=== PATIENT | female | born 1955 | race Caucasian/White ===

== ENCOUNTER 2023-03-01 14:30 | Observation (INO) | payer MEDICARE, OTHER, SELFPAY ==
--- NOTE | ~2023-03-01 | CT_ITS ---
EXAMINATION: CTA OF THE HEAD AND NECK CLINICAL INFORMATION: Transient global amnesia. Fall. COMPARISON: None available. TECHNIQUE: Test bolus sequences followed by intravenous administration 60 mL of Omnipaque 350. Helical imaging was performed in the axial plane from the mediastinum to the skull vertex. Delayed postcontrast imaging of the head was also performed. The data was processed at the nuclear medicine technologist's workstation for generation of MIP sequences. Three-dimensional volume rendered reformatted images were also generated at an offline 3-D workstation. Stenoses are assessed in accordance with NASCET criteria unless otherwise indicated. This CT examination was performed using dose optimization techniques as appropriate, variously including the following: *Automated exposure control *Adjustment of mA and/or kV according to patient size (this includes techniques or standardized protocols for targeted exams where dose is matched to indication/reason for exam; i.e. extremities or head) *Use of iterative reconstruction technique DLP: 2263 mGy-cm. FINDINGS: CT head: There is no evidence of acute intracranial hemorrhage or territorial infarction. There is no loss of quigley to white matter differentiation. No abnormal mass effect or midline shift is seen. No extra-axial fluid collections are identified. There is no abnormal enhancement. The ventricles are normal in size. There is no abnormal attenuation within the brain parenchyma. The osseous structures and soft tissues are normal. The mastoid air cells are well aerated. There is mild mucosal thickening in the dependent maxillary sinuses. CTA neck: The imaged aortic arch and origins of the great vessels are normal. The common carotid arteries are widely patent. The carotid bifurcations are normal. The cervical internal carotid arteries are normal. The vertebral arteries opacify normally and are of normal caliber. The soft tissues of the neck are unremarkable. Moderate spondylitic changes noted from the C4 through the C6 levels with disc-osteophyte complexes. The imaged portions of the lungs are clear. CTA head: The intradural vertebral arteries and basilar artery are normal. The posterior cerebral arteries are widely patent. The internal carotid arteries are of normal caliber. The ARPAN and MCA vascular complexes bilaterally are normal. The venous sinuses opacify normally. CT/CT angio head neck IMPRESSION: No acute intracranial process. Normal CT angiogram of the head and neck. Moderate mid to lower cervical spondylosis. Imaging findings reported to Dr. Kaiser at 5:45 PM on 03/01/2023.
--- NOTE | ~2023-03-01 | XR_ITS ---
EXAMINATION: XR HAND, RIGHT CLINICAL INFORMATION: Fall. Pain and swelling of the fourth finger COMPARISON: None available. TECHNIQUE: Three views of the right hand. FINDINGS: There is no fracture. No dislocation. No soft tissue abnormality. Minor joint narrowing and small marginal bone spurs of the DIP joints and of the middle finger PIP joint. XR/XR hand RT min 3V IMPRESSION: 1. No acute abnormality. 2. 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
--- NOTE | ~2023-03-01 | XR_ITS ---
EXAMINATION: XR HAND, LEFT CLINICAL INFORMATION: Fall. Swelling and pain of the middle finger. COMPARISON: None available. TECHNIQUE: Three views of the left hand. FINDINGS: No acute abnormality. No displaced fracture. Small corticated periarticular bone density at the radial side of the DIP joint of the middle finger. Degenerative joint narrowing with marginal bone spurs of the IP joint of the thumb and of the first metacarpal phalangeal joint. XR/XR hand LT min 3V IMPRESSION: 1. No acute abnormality. 2. Degenerative change of the IP joint of the thumb and first metacarpophalangeal joint.
[2023-03-01 14:37] VITALS: BP 146/80; PULSE 78; O2SAT 98
[2023-03-01 14:39] VITALS: BP 147/66; PULSE 60; RESP 19; TEMP 36.9; O2SAT 98; BMI 26.2
--- NOTE | 2023-03-01 14:47 | ECG_ITS ---
Test Reason : HEADACHE Blood Pressure : / mmHG Vent. Rate : 055 BPM Atrial Rate : 055 BPM P-R Int : 166 ms QRS Dur : 078 ms QT Int : 418 ms P-R-T Axes : 054 063 056 degrees QTc Int : 399 ms Sinus bradycardia Otherwise normal ECG No previous ECGs available Referred By: Jermaine Kaiser Electronically Signed By:HAN FRENCH MD
--- NOTE | 2023-03-01 14:50 | ED_ITS ---
HPI - Altered Mental Status General Chief Complaint: Altered Mental Status Stated Complaint: ?STROKE,FOUND OUTSIDE,?LOC,BRUISED FINGER Time Seen by Provider: 03/01/23 14:33 Source: patient, family and EMS History of Present Illness HPI narrative: 67 years old with no significant past medical history, brought to the emergency room by EMS after being found outside over house, confused. with bruising on both hands. Patient reports that she remembers waking up and having breakfast and then the next thing she remembers is being in the ambulance with EMS crew. Patient cannot recall if she fell. On arrival patient knows her name and date of , knows that we are in 2022 but does not know the exact date. She does not appear in distress, reports no chest pain, headache, abdominal pain nausea or vomiting. Reports pain in both middle fingers which also appears bruised. She is moving all 4 extremities. Last seen well [id number] Related Data Allergies Allergy/AdvReac Type Severity Reaction Status Date / Time No Known Allergies Allergy Verified 03/01/23 14:47 Review of Systems 2 Review of Systems: Yes all other systems are reviewed and are negative [facility] Social History Social History Advance Directives: No Advance Directives Information Provided: No Physical Exam ED Vital Signs: Vital Signs - 24 hr 03/01/23 14:39 03/01/23 15:44 Temperature 98.4 F 98.2 F Pulse Rate 60 58 Respiratory Rate 19 16 Blood Pressure 147/66 H 146/73 H Pulse Oximetry 98 98 Oxygen Delivery Method Room Air BMI result Body Mass Index 26.2 Const Other: General: Alert, Not in Distress Skin: bruising of the distal phalanx on both middle fingers. HEENT: Atraumatic, No Exudate or Pharyngeal Erythema Resp: Normal Breath sounds bilaterally Cardio: Regular rate and Rhythm, Normal S1, S2 ABD: Abd soft, non tender, no guarding or rebound. Normal Bowel sounds. : No cva tenderness Neuro: Alert, oriented x4, PERRL Strenght 5/5 on all extremities Sensation is preserved in both lower and upper extremities Index to nose: normal Cranial Nerves II-XII grossly intact No dysarthria, or aphasia No neglet. Visual green are normal bilaterally Psych: Cooperative, NO SI NIH Stroke Scale Internal: Initial- Upon Arrival Level of Consciousness: Alert Level of Consciousness Questions: Answers one question correctly Level of Consciousness Commands: Performs both tasks correctly Best Gaze: Normal Visual: No visual loss Facial Palsy: Normal Motor Arm (Right): No drift Motor Arm (Left): No drift Motor Leg (Right): No drift Motor Leg (Left): No drift Limb Ataxia: Absent Sensory: Normal Best Language: No aphasia Dysarthia: Normal Extinction and Inattention: No abnormality Score: 1 Course Reevaluation(s) Reevaluation #1: Patient continues to anterograd amnesia. I personally reviewed patient's blood work which is unremarkable I personally reviewed x-ray hands: No fracture Further history from family (GUS): PATIENT WAS LAST SEEN WELL THIS MORNING, SHE WAS THEN FOUND BY HER NEIGHBOR confused unable to provide history. Patient seems to continuously forget new events since this morning but has good memory of past events Time: 16:32 Medications Administered Discontinued Medications Generic Name Dose Route Start Last Admin Trade Name Freq PRN Reason Stop Dose Admin Acetaminophen 975 mg 03/01/23 14:47 03/01/23 15:26 Acetaminophen 325 Mg Tablet PO 03/01/23 14:48 975 mg ONCE ONE Administration Sodium Chloride 500 mls @ 999 mls/hr 03/01/23 15:00 03/01/23 15:26 Ns IV 03/01/23 15:30 999 mls/hr .Q31M YOHANA Administration Medical Decision Making Medical Decision Making [facility] Narrative: 67 years old, no significant past medical history, presents to the emergency room for acute confusion. Last seen well 0800AM Patient was found outside the house by a neighbor, unable to give a reliable history on how she ended up there. On initial exam patient does not have any focal neurological deficit, still slightly confused, she is oriented to person, place but does not know the exact date but knows we are in 2022. Impression: Transient global amnesia, TIA, metabolic encephalopathy, drug reaction Plan: CTA head and neck. Patient does not have focal neuro deficit. Will not activate stroke EKG CBC, CMP, VBG X-ray and Analgesia Admission/Observation Consideration of admission/observation: Escalation of care including admission/observation considered Lab Data [facility] Lab Attestation statement: I reviewed the patient's lab results. 03/01/23 16:00 03/01/23 16:00 Labs: Lab Results 03/01/23 03/01/23 Range/Units 16:00 16:04 WBC 7.1 (4.8-10.8) X10*3/uL RBC 4.82 (4.20-5.50) X10*6/uL Hgb 14.9 (12.0-16.0) g/dl Hct 43.9 (37.0-47.0) % MCV 91.1 (80.0-98.0) fL MCH 30.9 (27.0-33.0) pg MCHC 33.9 (31.0-35.0) g/dl RDW 12.4 (11.0-16.0) % Plt Count 222 (160-400) X10*3/uL MPV 9.3 L (9.4-12.3) fL Immature Gran % (Auto) 0.3 (0.0-0.4) % Neut % (Auto) 74.1 H (45-73) % Lymph % (Auto) 20.9 (20-40) % [place] % (Auto) 3.8 (2-11) % Eos % (Auto) 0.6 (0-4) % Baso % (Auto) 0.3 (0-2) % Lymph # (Auto) 1.5 (1.2-4.9) X10*3/uL [place] # (Auto) 0.3 (0.1-1.2) X10*3/uL Eos # (Auto) 0.0 (0.0-0.4) X10*3/uL Baso # (Auto) 0.0 (0.0-0.2) X10*3/uL Abs Immat Gran (auto) 0.02 (0.00-0.03) X10*3/uL Absolute Neuts (auto) 5.2 (2.0-8.3) x10*3/uL Absolute Nucleated RBC 0.000 (0.0-0.012) X10*3/uL Nucleated RBC % (auto) 0.0 (0.0-0.2) /100WBC VBG pH 7.40 (7.32-7.43) VBG pCO2 47 mmHg VBG pO2 39 mmHg VBG HCO3 29 H (22-26) mmol/L VBG O2 Saturation 60.0 % VBG Base Excess 4.1 mmol/L Sodium 139 (135-145) mmol/L Potassium 3.9 (3.3-5.1) mmol/L Chloride 103 (96-108) mmol/L Carbon Dioxide 24 (22-29) mmol/L Anion Gap 16 (12-20) BUN 7 L (9-16) mg/dL Creatinine 0.80 (0.5-1.4) mg/dL Estim Creat Clear Calc 62.7 Estimated GFR > 60 Random Glucose 115 (60-115) mg/dL Calcium 10.4 H (8.4-10.2) mg/dL Total Bilirubin 1.2 H (0.0-1.0) mg/dL Direct Bilirubin 0.3 (0.0-0.5) mg/dL AST 30 (5-31) U/L ALT 26 (0-31) U/L Alkaline Phosphatase 72 (39-117) U/L Total Protein 7.7 (6.5-8.0) g/dL Albumin 4.8 (3.5-5.0) g/dL Independent Interpretation I performed an independent interpretation of an: EKG (Normal SR) and Plain X-Ray (No fracture) Discharge Plan Discharge Clinical Impression: Altered mental status, Amnesia, global, transient
[2023-03-01] MEDS: Acetaminophen 325 MG TABLET 975 MG PO (15:26)
[2023-03-01] MEDS: 0.9 % Sodium Chloride 500 ML 999 ML IV (15:26)
[2023-03-01 15:44] VITALS: BP 146/73; PULSE 58; RESP 16; TEMP 36.8; O2SAT 98
[2023-03-01 16:06] LABS: MANUAL DIFF FLAG NO
--- NOTE | 2023-03-01 16:06 | MHC.EDTECH ---
THis Pct assumed care of pt at 1500 ,ekg taken and blood drawn and rsv /covid swab collected and sent to lab .
[2023-03-01 16:08] LABS: Basophils Percent Auto 0.3 % (0-2); Eosinophils Percent Auto 0.6 % (0-4); Hematocrit 43.9 % (37.0-47.0); Hemoglobin 14.9 g/dl (12.0-16.0); Imm Gran Abs Auto 0.02 X10*3/uL (0.00-0.03); Imm Gran Pct Auto 0.3 % (0.0-0.4); Lymphocytes Absolute Auto 1.5 X10*3/uL (1.2-4.9); Lymphocytes Percent Auto 20.9 % (20-40); Mean Corpuscular HGB Conc 33.9 g/dl (31.0-35.0); Mean Corpuscular Hemoglobin 30.9 pg (27.0-33.0); Mean Corpuscular Volume 91.1 fL (80.0-98.0); Mean Platelet Volume 9.3 fL (9.4-12.3); Monocytes Absolute Auto 0.3 X10*3/uL (0.1-1.2); Monocytes Percent Auto 3.8 % (2-11); Neutrophils Absolute Auto 5.2 x10*3/uL (2.0-8.3); Neutrophils Percent Auto 74.1 % (45-73); Platelet Count 222 X10*3/uL (160-400); Red Blood Count 4.82 X10*6/uL (4.20-5.50); Red Cell Distribution Width 12.4 % (11.0-16.0); White Blood Count 7.1 X10*3/uL (4.8-10.8)
[2023-03-01 16:09] LABS: VBG Base Excess 4.1 mmol/L; VBG HCO3 29 mmol/L (22-26); VBG pCO2 47 mmHg; VBG pO2 39 mmHg
[2023-03-01 16:10] LABS: Venous Blood Gas Refer to POC result
[2023-03-01 16:27] LABS: Alanine Aminotransferase 26 U/L (0-31); Albumin Level 4.8 g/dL (3.5-5.0); Alkaline Phosphatase 72 U/L (39-117); Anion Gap 16 (12-20); Aspartate Amino Transferase 30 U/L (5-31); Bilirubin Direct 0.3 mg/dL (0.0-0.5); Bilirubin Total 1.2 mg/dL (0.0-1.0); Blood Urea Nitrogen 7 mg/dL (9-16); Calcium 10.4 mg/dL (8.4-10.2); Carbon Dioxide 24 mmol/L (22-29); Chloride 103 mmol/L (96-108); Creatinine Clr Calc Pharmacy 62.7; Estimated Glomerular Filt Rate > 60; Glucose Random 115 mg/dL (60-115); Potassium 3.9 mmol/L (3.3-5.1); Sodium 139 mmol/L (135-145); Total Protein 7.7 g/dL (6.5-8.0)
[2023-03-01 16:52] LABS: Influenza A PCR NEGATIVE (Negative); Influenza B PCR NEGATIVE (Negative); Resp Syncy Virus RNA Qual PCR NEGATIVE (Negative); SARS COV2 PCR INHOUSE NEGATIVE (Negative)
[2023-03-01] MEDS: iohexoL 350 MG/ML 100 ML INFUS..BTL 60 ML IV (17:14)
[2023-03-01 17:16] LABS: Glucose, Whole Blood 106 mg/dL (60-115)
--- NOTE | 2023-03-01 18:08 | PHA.MEDREC ---
Pharmacy Consult ? Medication Reconciliation Pharmacy has completed the medication reconciliation. Patient reported medications, report has not start estradiol cream yet. Melissa Swenson, SamuelD
[2023-03-01 18:39] VITALS: BP 149/73; PULSE 56; RESP 16; TEMP 36.9; O2SAT 98
[2023-03-01 18:47] LABS: Appearance Urine Clear; Color Urine Yellow; Glucose Urine UA Negative (Negative); Leukocyte Esterase Urine Trace (Negative); Nitrite Urine Negative (Negative); PH 6.5 (5.0-9.0); Specific Gravity - Urine 1.015 (1.005-1.025); UMIC TRIGGER UACC YES; Urine Blood Negative (Negative); Urine Ketones Negative (Negative); Urine Protein Negative (Neg-Trace)
[2023-03-01 18:53] LABS: Bacteria Urine None Seen (None Seen); Hyaline Casts Urine 0-2 /LPF (0-2); RBC Urine 0-2 /HPF (0-2); Squamous Epithelial Cell Urine 0-2 /HPF (0-2); WBC Urine 0-5 /HPF (0-5)
[2023-03-01 19:05] LABS: Amphetamine Screen Urine Not Detected (Not Detect); Barbiturates, Urine Not Detected (Not Detect); Benzodiazepines Screen Urine Not Detected (Not Detect); Cannabinoid Screen Urine Not Detected (Not Detect); Cocaine Screen Urine Not Detected (Not Detect); Fentanyl, urine Not Detected (Not Detect); Opiate Screen Urine Not Detected (Not Detect); Phencyclidine Screen Urine Not Detected (Not Detect)
--- NOTE | 2023-03-01 19:48 | PM.IMHP ---
History of Present Illness Date of Service: 03/01/23 Attending physician on admission: [facility] Chief Complaint: amnesia 67-year-old female without any significant past medical history presented to the ED via EMS for evaluation of confusion/altered mental status. She is currently accompanied by her partner who assists with history. Per the patient, she said out on her usual routine this [place] walking a 1.5 mi hike with her dog. She does not recall any falls or trauma but does not recall finishing the hike and arriving home. She shows me a text message she sent to her friend which states that she felt she crushed her fingers and was unsure why. The text message was coherent. Apparently, her friend arrived to her house for unexpected visit around 10 30 this morning and found her in the front yd bleeding from her hands and confused. She was ultimately brought to the hospital for further evaluation after a friend called EMS. The patient is currently oriented x3 but per her partner continues asking the same questions and recalls little of earlier today. She states she did have a similar though not as severe episode about 10-15 years ago but is unclear to the etiology of the symptoms at that time. Her partner does note that there is increased stress as they are though amicable. She denies any illicit substance use. She reports drinking about 1-2 alcoholic beverages on the weekend but did not consume any alcohol last night or today. She denies any new medications except for melatonin which she has been taking nightly for sleep. He denies any visual changes, lightheadedness, focal weakness or paresthesias. No gait instability. There is bruising noted to the fingers but no other evidence of trauma. On arrival, vital stable the patient slightly hypertensive to 149/73. No leukocytosis. Renal function and electrolyte levels normal. VBG without any significant hypercapnia. Urinalysis unremarkable. Urine tox screen negative. Negative for influenza, RSV, COVID-19. CTA of the head and neck negative for any acute intracranial process with normal CT angiogram. There is moderate mid to lower cervical spondylosis but no other abnormality. X-ray of the hands bilaterally negative for any acute osseous abnormality. In the ED, given Tylenol, 500 mL IVF. Review of Systems Review of Systems: General: No fevers, malaise, unintentional weight loss HEENT: No blurred vision, diplopia. No sore throat, nasal congestion, rhinorrhea, sinus pain, ear pain Cardiovascular: No chest pain, palpitations, or leg edema Respiratory: No shortness of breath, wheezing, cough GI: No abdominal pain, nausea, vomiting, diarrhea, constipation, melena, hematochezia : No dysuria, hematuria, increased urinary frequency, decreased urinary output MSK: No myalgia, back pain. +trauma bilateral fingers Neuro: No headaches, weakness, paresthesias. +amnesia Skin: No rashes or lesions [facility] Medical History No pertinent past medical history Social History (Updated 03/01/23 @ 19:55 by DEYA Urbina) Alcohol intake: current Alcohol intake frequency: a few times a month Patient Tobacco Use Status: Never used Tobacco Meds Allergies Allergy/AdvReac Type Severity Reaction Status Date / Time No Known Allergies Allergy Verified 03/01/23 14:47 Active Medications: Current Medications Acetaminophen (Acetaminophen 325 Mg Tablet) 650 mg PO Q6H PRN PRN Reason: Pain, Mild (Pain Scale 1-3) Enoxaparin Sodium (Enoxaparin Sodium 40 Mg/0.4 Ml Syringe) 40 mg SUBCUT Q24H YOHANA Ondansetron HCl (Ondansetron Hcl 4 Mg/2 Ml Vial) 4 mg IVPUSH Q8H PRN PRN Reason: Nausea and Vomiting Sodium Chloride (0.9 % Sodium Chloride Flush 3 Ml Syringe) 3 ml IVFLUSH QSHIFT [facility] Home Medications Medication Instructions Recorded Confirmed Last Taken Type [place] Herbs 1 tab PO DAILY 03/01/23 03/01/23 Unknown History albuterol sulfate 90 mcg/actuation 2 puff inhalation Q6H PRN dyspnea 03/01/23 03/01/23 Unknown History aerosol inhaler estradiol 10 mcg vaginal tablet 10 mcg vaginal 2XW 03/01/23 03/01/23 Unknown History (Yuvafem) levocetirizine 5 mg tablet (Xyzal) 5 mg PO DAILY PRN Allergy Symptoms 03/01/23 03/01/23 Unknown History Physical Exam Vital Signs and Narrative: Vital Signs: Last Vital Signs Temp 98.4 F 03/01/23 18:39 Pulse 56 03/01/23 18:39 Resp 16 03/01/23 18:39 BP 149/73 H 03/01/23 18:39 Pulse Ox 98 03/01/23 18:39 O2 Del Method Room Air 03/01/23 18:39 BMI result Body Mass Index 26.2 Constitutional - Awake and Alert, No apparent distress Eyes - PERRLA, EOMI Cardiovascular - S1S2, RRR, No edema Respiratory - Normal lung expansion, Normal respiratory effort, No respiratory distress, CTA bilaterally Gastrointestinal - NT / ND; +BS; No rebound or guarding Extremities - no calf tenderness bilaterally, no swelling MSK- ecchymosis of the distal phalanx of the 3rd fingers bilaterally with subungual hematoma on the bilateral 2nd and 3rd fingers Skin - Warm/Dry Neurological - Alert & oriented x3, cannot recall events earlier in the day, CN II-XII in tact, 5/5 strength BUE and BLE Psychological - Appropriate affect Results Labs 03/01/23 16:00 03/01/23 16:00 Labs: Laboratory Results - last 24 hr 03/01/23 03/01/23 03/01/23 16:00 16:04 16:37 MCV 91.1 MCH 30.9 MCHC 33.9 RDW 12.4 Plt Count 222 MPV 9.3 L Immature Gran % (Auto) 0.3 Neut % (Auto) 74.1 H Lymph % (Auto) 20.9 [place] % (Auto) 3.8 Eos % (Auto) 0.6 Baso % (Auto) 0.3 Lymph # (Auto) 1.5 [place] # (Auto) 0.3 Eos # (Auto) 0.0 Baso # (Auto) 0.0 Abs Immat Gran (auto) 0.02 Absolute Neuts (auto) 5.2 Absolute Nucleated RBC 0.000 Nucleated RBC % (auto) 0.0 VBG pH 7.40 VBG pCO2 47 VBG pO2 39 VBG HCO3 29 H VBG O2 Saturation 60.0 VBG Base Excess 4.1 Anion Gap 16 Estim Creat Clear Calc 62.7 Estimated GFR > 60 POC Glucose 106 Random Glucose 115 Calcium 10.4 H Total Bilirubin 1.2 H Direct Bilirubin 0.3 AST 30 ALT 26 Alkaline Phosphatase 72 Total Protein 7.7 Albumin 4.8 Urine Color Urine Appearance Urine pH Ur Specific [place] Urine Protein Urine Glucose (UA) Urine Ketones Urine Blood Urine Nitrite Ur Leukocyte Esterase Urine RBC Urine WBC Ur Squamous Epith Cells Urine Bacteria Hyaline Casts Urine Opiates Screen Urine Fentanyl Screen Ur Barbiturates Screen Ur Phencyclidine Scrn Ur Amphetamines Screen U Benzodiazepines Scrn Urine Cocaine Screen U Marijuana (THC) Screen Influenza Type A (PCR) NEGATIVE Influenza Type B (PCR) NEGATIVE RSV RNA Qual (PCR) NEGATIVE SARS-CoV-2 RNA (RT-PCR) NEGATIVE 03/01/23 17:57 MCV MCH MCHC RDW Plt Count MPV Immature Gran % (Auto) Neut % (Auto) Lymph % (Auto) [place] % (Auto) Eos % (Auto) Baso % (Auto) Lymph # (Auto) [place] # (Auto) Eos # (Auto) Baso # (Auto) Abs Immat Gran (auto) Absolute Neuts (auto) Absolute Nucleated RBC Nucleated RBC % (auto) VBG pH VBG pCO2 VBG pO2 VBG HCO3 VBG O2 Saturation VBG Base Excess Anion Gap Estim Creat Clear Calc Estimated GFR POC Glucose Random Glucose Calcium Total Bilirubin Direct Bilirubin AST ALT Alkaline Phosphatase Total Protein Albumin Urine Color Yellow Urine Appearance Clear Urine pH 6.5 Ur Specific [place] 1.015 Urine Protein Negative Urine Glucose (UA) Negative Urine Ketones Negative Urine Blood Negative Urine Nitrite Negative Ur Leukocyte Esterase Trace H Urine RBC 0-2 Urine WBC 0-5 Ur Squamous Epith Cells 0-2 Urine Bacteria None Seen Hyaline Casts 0-2 Urine Opiates Screen Not Detected Urine Fentanyl Screen Not Detected Ur Barbiturates Screen Not Detected Ur Phencyclidine Scrn Not Detected Ur Amphetamines Screen Not Detected U Benzodiazepines Scrn Not Detected Urine Cocaine Screen Not Detected U Marijuana (THC) Screen Not Detected Influenza Type A (PCR) Influenza Type B (PCR) RSV RNA Qual (PCR) SARS-CoV-2 RNA (RT-PCR) Imaging Radiologist's Impressions: Impressions Hand X-Ray 03/01/23 15:04 IMPRESSION: 1. No acute abnormality. 2. Degenerative change of the IP joint of the thumb and first metacarpophalangeal joint. Hand X-Ray 03/01/23 15:07 IMPRESSION: 1. No acute abnormality. 2. 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 Head/Neck CTA 03/01/23 17:15 IMPRESSION: No acute intracranial process. Normal CT angiogram of the head and neck. Moderate mid to lower cervical spondylosis. Imaging findings reported to Dr. Kaiser at 5:45 PM on 03/01/2023. Assessment and Plan (1) Amnesia, global, transient: Status: Acute Plan 67-year-old female without any significant past medical history to be observed following an episode of transient global amnesia. #Transient global amnesia -etiology unclear at this time- consider stress induced, psychological, less likely TIA -No evidence of head trauma, cta head/neck without any acute abnormality -neurology consult -further workup with MRI verses EEG per Neurology -monitor on telemetry # hand trauma -x-rays negative for osseous abnormality -Tylenol p.r.n. DVT prophylaxis-Lovenox full code Time Spent With Patient Time: Total time managing care of this patient today ____ minutes. Quality Stroke Does the patient have a stroke diagnosis?: No VTE Prior VTE?: No VTE Risk Level:: Medical - moderate - high VTE Device Contraindication: Treatment Not Indicated VTE Drug Contraindication: N/A - Med Ordered
[2023-03-01] MEDS: Enoxaparin Sodium 40 MG/0.4 ML SYRINGE SUBCUT (19:59)
--- NOTE | 2023-03-01 20:03 | PC.NURSE ---
I assumed care of the pt at 1900. Pt resting quietly in bed at this time, no apparent distress. Pt is A&O to person and place, GCS 15, with warm, dry skin. Pt was medicated per JUN. Pt denies pain, NVD, or SOB at this time.
[2023-03-01 20:13] VITALS: BP 131/50; PULSE 52; RESP 20; TEMP 36.8; O2SAT 96
[2023-03-01 21:12] LABS: TSH reflex Free T4 1.88 uIU/mL (0.32-4.0)
[2023-03-01 23:38] VITALS: BP 136/60; PULSE 50; RESP 20; TEMP 36.9; O2SAT 98
--- NOTE | 2023-03-01 23:39 | MHC.EDTECH ---
0000 Rounding done ,vitals taken ,Pt ambulate to bathroom back to bed ,was hooked back up to monitoring coordinator ,Pt said she will try to get some sleep .
[2023-03-02] MEDS: 0.9 % Sodium Chloride Flush 3 ML SYRINGE IVFLUSH ×2 (00:38→09:04)
[2023-03-02] MEDS: Acetaminophen 325 MG TABLET 650 MG PO (02:36)
[2023-03-02 04:56] VITALS: BP 122/52; PULSE 50; RESP 16; TEMP 36.6; O2SAT 97
[2023-03-02 05:09] VITALS: BMI 24.6
[2023-03-02 06:52] LABS: MANUAL DIFF FLAG NO
[2023-03-02 07:03] LABS: Basophils Percent Auto 0.6 % (0-2); Eosinophils Absolute Auto 0.2 X10*3/uL (0.0-0.4); Eosinophils Percent Auto 3.6 % (0-4); Hemoglobin 13.5 g/dl (12.0-16.0); Imm Gran Abs Auto 0.01 X10*3/uL (0.00-0.03); Imm Gran Pct Auto 0.2 % (0.0-0.4); Lymphocytes Absolute Auto 2.2 X10*3/uL (1.2-4.9); Lymphocytes Percent Auto 44.2 % (20-40); Mean Corpuscular HGB Conc 32.9 g/dl (31.0-35.0); Mean Corpuscular Hemoglobin 30.4 pg (27.0-33.0); Mean Corpuscular Volume 92.3 fL (80.0-98.0); Mean Platelet Volume 9.9 fL (9.4-12.3); Monocytes Absolute Auto 0.4 X10*3/uL (0.1-1.2); Monocytes Percent Auto 8.5 % (2-11); Neutrophils Absolute Auto 2.1 x10*3/uL (2.0-8.3); Neutrophils Percent Auto 42.9 % (45-73); Platelet Count 204 X10*3/uL (160-400); Red Blood Count 4.44 X10*6/uL (4.20-5.50); Red Cell Distribution Width 12.8 % (11.0-16.0)
[2023-03-02 07:18] LABS: Anion Gap 12 (12-20); Blood Urea Nitrogen 6 mg/dL (9-16); Calcium 9.4 mg/dL (8.4-10.2); Carbon Dioxide 25 mmol/L (22-29); Chloride 109 mmol/L (96-108); Creatinine Clr Calc Pharmacy 68.7; Estimated Glomerular Filt Rate > 60; Glucose Random 91 mg/dL (60-115); Potassium 4.2 mmol/L (3.3-5.1); Sodium 142 mmol/L (135-145)
[2023-03-02 07:46] VITALS: BP 126/58; PULSE 51; RESP 18; TEMP 36.3; O2SAT 96
--- NOTE | 2023-03-02 10:31 | MHC.CM.PN ---
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 DENIES USE OF DME/SERVICES AND GOAL FOR DC IS HOME NO SERVICES W/FRIEND FOR TRANSPORT. PT VERIFIES PCP ON FILE IS CORRECT, FULLY VACCINATED FOR COVID19 INCLUDING MOST RECENT BOOSTER LAST WEEK, PT EDUCATED ON AND DECLINES TO COMPLETE A NEW HCP, PT REPORTS HER GUS IS CURRENTLY HER [facility] AND IS CONSIDERING CHANGING IT HOWEVER UNSURE WHO WILL CHOOSE AT THIS TIME, PT PROVIDED W/EDUCATIONAL HANDOUT AND BLANK HCP TO COMPLETE AT HOME. ANTIC DC LATER TODAY AFTER NEURO CONSULT W/FRIEND FOR TRANSPORT
[2023-03-02 11:29] VITALS: BP 136/65; PULSE 54; RESP 16; TEMP 36.2; O2SAT 97
--- NOTE | 2023-03-02 12:10 | P.CNNE_ITS ---
History of Present Illness Data of Consult Service Date: 03/02/23 Primary Care Provider: Imelda Alston MD HPI Reason for consult: Amnesia 67 years old woman apparently with no significant past medical history except that she had a similar episode number of years ago with no obvious explanation. Upon questioning, she stated that she suffered from migraine headaches, which got better after menopause. Now headaches were rare. She was brought to hospital after she was noted to be confused or not remembering what had happened. She was unable to remember or elaborate on that and that history was documented on her initial HPI. When I asked her why she was here, she said that she had an accident when she was lifting something at home and her both middle fingers got injured. She showed me bluish discoloration of her nails in both middle fingers. She said the last night she did not sleep well and because of that she was having a headache but otherwise she was fine. She denied any previous history of seizure or passing out. There was no recent head injury. She denied suffering from significant anxiety or depression but presently she was going through stressful times stating that she was from her partner and that was stressful for her. When I asked common stressful she was? She said about 7. Review of Systems 2 Review of Systems: No recent cold or flu-like illness PMFSH Past Medical History Medical History No pertinent past medical history Social History Social History (Updated 03/01/23 @ 19:55 by DEYA Urbina) Alcohol intake: current Alcohol intake frequency: a few times a month Alcohol type: wine Patient Tobacco Use Status: Never used Tobacco service: No Meds Allergies Allergy/AdvReac Type Severity Reaction Status Date / Time No Known Allergies Allergy Verified 03/01/23 14:47 Active Medications: Current Medications Acetaminophen (Acetaminophen 325 Mg Tablet) 650 mg PO Q6H PRN PRN Reason: Pain, Mild (Pain Scale 1-3) Last Admin: 03/02/23 02:36 Dose: 650 mg Albuterol Sulfate (Albuterol Sulfate 90 Mcg 8 Gm Inhaler) 2 puff INHALE Q6H PRN PRN Reason: dyspnea Docusate Sodium (Docusate Sodium 100 Mg Capsule) 100 mg PO DAILY PRN PRN Reason: Constipation Enoxaparin Sodium (Enoxaparin Sodium 40 Mg/0.4 Ml Syringe) 40 mg SUBCUT Q24H [facility] Last Admin: 03/01/23 19:59 Dose: 40 mg Loratadine (Loratadine 10 Mg Tablet) 10 mg PO DAILY PRN PRN Reason: Allergy Symptoms Non-Formulary Medication (Estradiol [Yuvafem]) 10 mcg VAGINAL 2XW [facility] Ondansetron HCl (Ondansetron Hcl 4 Mg/2 Ml Vial) 4 mg IVPUSH Q8H PRN PRN Reason: Nausea and Vomiting Sodium Chloride (0.9 % Sodium Chloride Flush 3 Ml Syringe) 3 ml IVFLUSH QSHIFT YOHANA Last Admin: 03/02/23 09:04 Dose: 3 ml Sodium Chloride (Sodium Chloride 0.65 % Nasal 44 Ml Sprbtl) 1 spray NOSTRIL-B Q1H PRN PRN Reason: congestion Home Medications Medication Instructions Recorded Confirmed Last Taken Type Swiss Herbs 1 tab PO DAILY 03/01/23 03/01/23 Unknown History albuterol sulfate 90 mcg/actuation 2 puff inhalation Q6H PRN dyspnea 03/01/23 03/01/23 Unknown History aerosol inhaler estradiol 10 mcg vaginal tablet 10 mcg vaginal 2XW 03/01/23 03/01/23 Unknown History (Yuvafem) levocetirizine 5 mg tablet (Xyzal) 5 mg PO DAILY PRN Allergy Symptoms 03/01/23 03/01/23 Unknown History Physical Exam 2 Vital Signs: Vital Signs: Last Vital Signs Temp 97.2 F 03/02/23 11:29 Pulse 54 03/02/23 11:29 Resp 16 03/02/23 11:29 BP 136/65 03/02/23 11:29 Pulse Ox 97 03/02/23 11:29 O2 Del Method Room Air 03/02/23 11:29 BMI result Body Mass Index 24.6 Neuro: Other: Alert and awake anxious looking woman with normal spontaneity of speech fluency and comprehension. Face is symmetrical. Visual green are full. There is no obvious focal weakness. Deep tendon reflexes are 1 to 2+ with flexor plantars. Results Labs 03/02/23 06:12 03/02/23 06:12 Labs: Short CBC 03/01/23 03/02/23 Range/Units 16:00 06:12 WBC 7.1 5.0 (4.8-10.8) X10*3/uL Hgb 14.9 13.5 (12.0-16.0) g/dl Hct 43.9 41.0 (37.0-47.0) % Plt Count 222 204 (160-400) X10*3/uL BMP 03/01/23 03/02/23 16:00 06:12 Sodium 139 142 Potassium 3.9 4.2 Chloride 103 109 H Carbon Dioxide 24 25 BUN 7 L 6 L Creatinine 0.80 0.71 Calcium 10.4 H 9.4 D Liver Function 03/01/23 Range/Units 16:00 Total Bilirubin 1.2 H (0.0-1.0) mg/dL Direct Bilirubin 0.3 (0.0-0.5) mg/dL AST 30 (5-31) U/L ALT 26 (0-31) U/L Alkaline Phosphatase 72 (39-117) U/L Albumin 4.8 (3.5-5.0) g/dL Urine 03/01/23 Range/Units 17:57 Urine Color Yellow Urine Appearance Clear Urine pH 6.5 (5.0-9.0) Ur Specific [place] 1.015 (1.005-1.025) Urine Protein Negative (Neg-Trace) mg/dL Urine Glucose (UA) Negative (Negative) mg/dL Her CT scan of brain revealed moderately severe bilateral cortical mostly parietal but also some posterior frontal atrophy. Vascular study did not reveal any lesion. Assessment and Plan (1) Amnesia, global, transient: Status: Acute 67 years old woman going through stressful situation related to separation from her partner, had some type of physical injury to her hands as she showed me bruises on her nails, was brought to hospital and a confused state or not remembering what had happened. She still did not have clear recollection of those events. Her examination, other than anxious affect, did not reveal any focal finding. Head CT revealed quite significant cortical atrophy involving parietal and posterior part of frontal lobes, which would suggest an underlying genetic tendency or a genetic disorder resulting in cerebral degeneration, which could cause neuropsychiatric symptoms. For now, my suggestion is to schedule an outpatient EEG to rule out seizure disorder. Counseling and therapy is also recommended to manage stress. Procedures Date of Service Date of Service: 03/02/23
--- NOTE | 2023-03-02 12:46 | PM.DS ---
DS: Providers Provider Date of Service: 03/02/23 Date of admission: 03/01/23 19:45 Primary care physician: Imelda Alston MD Consults: 03/01/23 19:45 Consult to Neurology Routine Consulting Provider: [facility] Reason for consultation: transient global amnesia DS: Diagnosis Discharge Diagnosis (1) Amnesia, global, transient: Status: Acute DS: Summary Hospital Course Hospital Course: History of presenting illness: Attending physician on admission: [facility] Chief Complaint: amnesia 67-year-old female without any significant past medical history presented to the ED via EMS for evaluation of confusion/altered mental status. She is currently accompanied by her partner who assists with history. Per the patient, she said out on her usual routine this [place] walking a 1.5 mi hike with her dog. She does not recall any falls or trauma but does not recall finishing the hike and arriving home. She shows me a text message she sent to her friend which states that she felt she crushed her fingers and was unsure why. The text message was coherent. Apparently, her friend arrived to her house for unexpected visit around 10 30 this morning and found her in the front yd bleeding from her hands and confused. She was ultimately brought to the hospital for further evaluation after a friend called EMS. The patient is currently oriented x3 but per her partner continues asking the same questions and recalls little of earlier today. She states she did have a similar though not as severe episode about 10-15 years ago but is unclear to the etiology of the symptoms at that time. Her partner does note that there is increased stress as they are though amicable. She denies any illicit substance use. She reports drinking about 1-2 alcoholic beverages on the weekend but did not consume any alcohol last night or today. She denies any new medications except for melatonin which she has been taking nightly for sleep. He denies any visual changes, lightheadedness, focal weakness or paresthesias. No gait instability. There is bruising noted to the fingers but no other evidence of trauma. On arrival, vital stable the patient slightly hypertensive to 149/73. No leukocytosis. Renal function and electrolyte levels normal. VBG without any significant hypercapnia. Urinalysis unremarkable. Urine tox screen negative. Negative for influenza, RSV, COVID-19. CTA of the head and neck negative for any acute intracranial process with normal CT angiogram. There is moderate mid to lower cervical spondylosis but no other abnormality. X-ray of the hands bilaterally negative for any acute osseous abnormality. In the ED, given Tylenol, 500 mL IVF. Hospital course: Acute transient global amnesia: 67-year-old female without any significant past medical history admitted for transient global amnesia, during hospitalization patient had no new neurological symptoms, she remained awake alert with no motor deficit, seen by Neurology they reviewed CT angiogram head and neck, and felt patient has significant cortical atrophy involving parietal and posterior part of frontal lobes, which would suggest an underlying genetic tendency or a genetic disorder resulting in cerebral degeneration, which could cause neuropsychiatric symptoms, he recommended outpatient EEG to rule out seizure, her episode was likely due to stress and strenuous activity, recommend to do counseling and minimize strenuous activity. # hand trauma -x-rays negative for osseous abnormality, recommend Tylenol p.r.n. Time Attestation Discharge coordination time: Greater than 30 minutes Quality: Safe Use of Opioids Does Pt have an Active Cancer Diagnosis on the Problem List?: No Quality: Stroke Does the patient have a stroke diagnosis?: No Physical Exam Vital Signs: Vital Signs: Last Vital Signs Temp 97.2 F 03/02/23 11:29 Pulse 54 03/02/23 11:29 Resp 16 03/02/23 11:29 BP 136/65 03/02/23 11:29 Pulse Ox 97 03/02/23 11:29 O2 Del Method Room Air 03/02/23 11:29 BMI result Body Mass Index 24.6 Const: Other: General awake alert x3, in no acute distress. Neck supple no JVD. CVS regular rate rhythm, Respiratory lungs clear to auscultation, no respiratory distress, no wheeze, no rhonchi. Gastrointestinal abdomen soft, non tender, bowel sounds audible, no guarding , no rigidity. Extremities no edema. Neuro nonfocal Skin no rash DS: Data Data Completed and Pending Labs on day of discharge: Laboratory Results - last 24 hr 03/01/23 03/01/23 03/01/23 16:00 16:04 16:37 WBC 7.1 RBC 4.82 Hgb 14.9 Hct 43.9 MCV 91.1 MCH 30.9 MCHC 33.9 RDW 12.4 Plt Count 222 MPV 9.3 L Immature Gran % (Auto) 0.3 Neut % (Auto) 74.1 H Lymph % (Auto) 20.9 Coal % (Auto) 3.8 Eos % (Auto) 0.6 Baso % (Auto) 0.3 Lymph # (Auto) 1.5 Coal # (Auto) 0.3 Eos # (Auto) 0.0 Baso # (Auto) 0.0 Abs Immat Gran (auto) 0.02 Absolute Neuts (auto) 5.2 Absolute Nucleated RBC 0.000 Nucleated RBC % (auto) 0.0 VBG pH 7.40 VBG pCO2 47 VBG pO2 39 VBG HCO3 29 H VBG O2 Saturation 60.0 VBG Base Excess 4.1 Sodium 139 Potassium 3.9 Chloride 103 Carbon Dioxide 24 Anion Gap 16 BUN 7 L Creatinine 0.80 Estim Creat Clear Calc 62.7 Estimated GFR > 60 POC Glucose 106 Random Glucose 115 Calcium 10.4 H Total Bilirubin 1.2 H Direct Bilirubin 0.3 AST 30 ALT 26 Alkaline Phosphatase 72 Total Protein 7.7 Albumin 4.8 TSH 1.88 Urine Color Urine Appearance Urine pH Ur Specific [place] Urine Protein Urine Glucose (UA) Urine Ketones Urine Blood Urine Nitrite Ur Leukocyte Esterase Urine RBC Urine WBC Ur Squamous Epith Cells Urine Bacteria Hyaline Casts Urine Opiates Screen Urine Fentanyl Screen Ur Barbiturates Screen Ur Phencyclidine Scrn Ur Amphetamines Screen U Benzodiazepines Scrn Urine Cocaine Screen U Marijuana (THC) Screen Influenza Type A (PCR) NEGATIVE Influenza Type B (PCR) NEGATIVE RSV RNA Qual (PCR) NEGATIVE SARS-CoV-2 RNA (RT-PCR) NEGATIVE 03/01/23 03/02/23 17:57 06:12 WBC 5.0 RBC 4.44 Hgb 13.5 Hct 41.0 MCV 92.3 MCH 30.4 MCHC 32.9 RDW 12.8 Plt Count 204 MPV 9.9 Immature Gran % (Auto) 0.2 Neut % (Auto) 42.9 L Lymph % (Auto) 44.2 H Coal % (Auto) 8.5 Eos % (Auto) 3.6 Baso % (Auto) 0.6 Lymph # (Auto) 2.2 Coal # (Auto) 0.4 Eos # (Auto) 0.2 Baso # (Auto) 0.0 Abs Immat Gran (auto) 0.01 Absolute Neuts (auto) 2.1 Absolute Nucleated RBC 0.000 Nucleated RBC % (auto) 0.0 VBG pH VBG pCO2 VBG pO2 VBG HCO3 VBG O2 Saturation VBG Base Excess Sodium 142 Potassium 4.2 Chloride 109 H Carbon Dioxide 25 Anion Gap 12 BUN 6 L Creatinine 0.71 Estim Creat Clear Calc 68.7 Estimated GFR > 60 POC Glucose Random Glucose 91 Calcium 9.4 D Total Bilirubin Direct Bilirubin AST ALT Alkaline Phosphatase Total Protein Albumin TSH Urine Color Yellow Urine Appearance Clear Urine pH 6.5 Ur Specific [place] 1.015 Urine Protein Negative Urine Glucose (UA) Negative Urine Ketones Negative Urine Blood Negative Urine Nitrite Negative Ur Leukocyte Esterase Trace H Urine RBC 0-2 Urine WBC 0-5 Ur Squamous Epith Cells 0-2 Urine Bacteria None Seen Hyaline Casts 0-2 Urine Opiates Screen Not Detected Urine Fentanyl Screen Not Detected Ur Barbiturates Screen Not Detected Ur Phencyclidine Scrn Not Detected Ur Amphetamines Screen Not Detected U Benzodiazepines Scrn Not Detected Urine Cocaine Screen Not Detected U Marijuana (THC) Screen Not Detected Influenza Type A (PCR) Influenza Type B (PCR) RSV RNA Qual (PCR) SARS-CoV-2 RNA (RT-PCR) Discharge Plan Discharge Patient Disposition: Home, Self-Care Discharge Diagnosis: Transient global amnesia Referrals: Imelda Alston MD [Primary Care Provider] - 1 Week Discharge Medications: Continued albuterol sulfate 90 mcg/actuation HFA aerosol inhaler 2 puff inhalation Q6H PRN (Reason: dyspnea) levocetirizine [Xyzal] 5 mg Tablet 5 mg PO DAILY PRN (Reason: Allergy Symptoms) estradiol [Yuvafem] 10 mcg tablet 10 mcg vaginal 2XW [place] Herbs 1 tab PO DAILY Discharge Orders: Discharge Order (Routine); Ordered 03/02/23 Ordered By: Oliver Knox Diet: Advance to usual diet Activity on Discharge: As tolerated Stand Alone Forms: Patient Portal Discharge page Care Plan Goals: Avoid strenuous activity/ Neuro recommend outpatient EEG to r/o seizure Health Concerns: Take all home medications as before Plan of Treatment: Outpatient follow-up with primary care physician call for appointment Called PCP to arrange for outpatient EEG. Assessment: As above
== END 2023-03-02 13:43 | disposition home or self-care (01) ==
LOC: HO.ED 17:53 → HO.EDOVER 19:52 → HO.IMC 03-02 04:09
PROVIDERS: Admitting Provider Physician Assistant; Emergency Provider Student in an Organized Health Care Education/Training Program; PCP Family Medicine; Visit Provider Hospitalist
DX: G45.4 Transient global amnesia (principal); R41.82 Altered mental status, unspecified; M79.645 Pain in left finger(s); M79.644 Pain in right finger(s); S69.92XA Unspecified injury of left wrist, hand and finger(s), initial encounter; W19.XXXA Unspecified fall, initial encounter; Y93.9 Activity, unspecified; Y92.9 Unspecified place or not applicable; Y99.9 Unspecified external cause status; Z20.828 Contact with and (suspected) exposure to other viral communicable diseases; Z20.822 Contact with and (suspected) exposure to COVID-19; Z79.899 Other long term (current) drug therapy
CPT/HCPCS: 0241U; 36415; 70496; 70498; 73130; 80048; 80076; 80307; 81001; 82803; 82947; 84443; 85025; 93005; 96360; 96372; 99222; 99285; J1650; Q9967

== ENCOUNTER → 2023-03-01 19:45 | Outpatient (BNV) | payer MEDICARE, OTHER, SELFPAY | PROVIDERS: Admitting Provider Physician Assistant; Emergency Provider Student in an Organized Health Care Education/Training Program; PCP Family Medicine; Visit Provider Physician Assistant | DX: G45.4 Transient global amnesia (principal) | CPT/HCPCS: 99223; 99239 ==